=== PATIENT | female | born 1950 | race Caucasian/White ===

== ENCOUNTER → 2016-09-21 | Outpatient (CLI) | payer MEDICARE, OTHER | LOC: RAD 09-14 08:30 | DX: R13.10 Dysphagia, unspecified (principal) | CPT/HCPCS: 74230; 92611-GN ==

== ENCOUNTER 2020-08-06 18:11 | Emergency (ER) | payer MEDICARE, OTHER ==
[~2020-08-06 18:11] MED LIST: BUMETANIDE1 MG PO; KEFLEX500 MG PO; LASIX40 MG PO; LEVEMIR FL100 UNIT/1 SQ; LOPRESSOR 25 MG25 MG PO; NEURONTIN800 MG PO; NORCO 5-325 TA1 EACH PO; NOVOLOG MI100 UNIT/1 SC; PRINIVIL10 MG PO; XARELTO20 MG PO; ZESTRIL/PRINIVI10 MG PO; ZITHROMAX250 MG PO
[2020-08-06 19:19] LABS: HEMOGLOBIN 13.5 gm/dl (12.3-15.3); RED BLOOD COUNT 4.37 M/UL (4.00-5.10)
[2020-08-06 20:19] LABS: BUN/CREATININE RATIO 20 (0-10)
[2020-08-06] MEDS ORDERED: PREDNISONE 20 M20 MG GT (21:14)
[2020-08-06] MEDS ORDERED: DOXYCYCLINE HY100 M2 PO (21:15)
[2021-01-25] MEDS ORDERED: VITAMIN D31250 MCG PO (18:04)
[2021-01-29] MEDS ORDERED: BUSPIRONE HCL7.5 MG PO (01:17)
== END 2020-08-06 22:54 | disposition home or self-care (01) ==
LOC: ER1 18:11
PROVIDERS: Family Medicine
DX: J44.1 Chronic obstructive pulmonary disease with (acute) exacerbation (principal); Z87.891 Personal history of nicotine dependence; Z20.822 Contact with and (suspected) exposure to COVID-19
CPT/HCPCS: 71045; 80053; 82550; 82553; 83874; 83880; 84484; 85025; 93005; 96374; 99285; J2930; U0003

== ENCOUNTER → 2020-11-10 | Outpatient (CLI) | payer MEDICARE, OTHER ==
[~2020-11-10] MED LIST changes: +ATORVASTATIN CA40 MG PO; +AUGMENTIN 875-1 EACH PO; +BUSPIRONE HCL7.5 MG PO; +DOXYCYCLINE HY100 M2 PO; +GABAPENTIN400 MG PO; +HYDRALAZINE HCL25 MG PO; +HYDROCODON-ACE1 EAC4 PO; +PREDNISONE 20 M20 MG GT; +SYMBICORT 80-10.2 GM INH; +VENTOLIN HFA 66.7 GM INH; +VIBRAMYCIN100 MG PO; +VITAMIN D31250 MCG PO
== END ==
LOC: KOH-I 13:58
DX: R60.0 Localized edema (principal); R09.89 Other specified symptoms and signs involving the circulatory and respiratory systems; R93.6 Abnormal findings on diagnostic imaging of limbs
CPT/HCPCS: 93925; 93970

== ENCOUNTER 2021-01-29 12:23 | Inpatient (IN) | payer MEDICARE, OTHER ==
[~2021-01-29] VITALS: Ht 157.5 cm; Wt 89.8 kg
[~2021-01-29 12:23] MED LIST changes: -ATORVASTATIN CA40 MG PO; -AUGMENTIN 875-1 EACH PO; -GABAPENTIN400 MG PO; -HYDRALAZINE HCL25 MG PO; -HYDROCODON-ACE1 EAC4 PO; -SYMBICORT 80-10.2 GM INH; -VENTOLIN HFA 66.7 GM INH; -VIBRAMYCIN100 MG PO
[2021-01-29 12:59] LABS: HEMOGLOBIN 13.9 gm/dl (12.3-15.3); RED BLOOD COUNT 4.82 M/UL (4.00-5.10); WHITE BLOOD COUNT 14.8 K/UL (4.5-11.0)
[2021-01-29 13:24] LABS: BUN/CREATININE RATIO 20 (0-10)
[2021-01-29] MEDS ORDERED: ATORVASTATIN CA40 MG PO (15:50)
[2021-01-29] MEDS ORDERED: SYMBICORT 80-10.2 GM INH (15:52)
[2021-01-29] MEDS ORDERED: LEVEMIR FL100 UNIT/1 SQ (15:52)
[2021-01-29] MEDS ORDERED: HYDRALAZINE HCL25 MG PO (15:53)
[2021-01-29] MEDS ORDERED: VENTOLIN HFA 66.7 GM INH (18:05)
[2021-01-29] MEDS ORDERED: HYDROCODON-ACE1 EAC4 PO (23:15)
[2021-01-30 08:46] LABS: HEMOGLOBIN 10.5 gm/dl (12.3-15.3); RED BLOOD COUNT 3.7 M/UL (4.00-5.10); WHITE BLOOD COUNT 8.9 K/UL (4.5-11.0)
--- NOTE | 2021-01-31 15:16 | NUR ---
TOOK OVER FOR BAN HUFFMAN AT 1400. PT RESTING IN HER BED CURRENTLY. NO NEW COMPLAINTS. ASSESSMENT OF THE PT IS CONSISTENT WITH THE AM ASSESSMENT PERFORMED BY BAN. WILL CONTINUE TO MONITOR.
[2021-01-31] MEDS ORDERED: AUGMENTIN 875-1 EACH PO (16:08)
[2021-01-31] MEDS ORDERED: VIBRAMYCIN100 MG PO (16:08)
[2021-01-31] MEDS ORDERED: GABAPENTIN400 MG PO (16:20)
== END 2021-01-31 22:30 | disposition home health service (06) | DRG 177 ==
LOC: ER1 12:23 → MED SURG 4 14:10 → CDU 14:10 → MED SURG 4 20:52
PROVIDERS: Emergency Medicine; Physician Assistant Medical; ADMIT Internal Medicine
DX: J69.0 Pneumonitis due to inhalation of food and vomit (principal); G92 Toxic encephalopathy; J44.0 Chronic obstructive pulmonary disease with (acute) lower respiratory infection; J44.1 Chronic obstructive pulmonary disease with (acute) exacerbation; J96.11 Chronic respiratory failure with hypoxia; N17.9 Acute kidney failure, unspecified; T42.6X5A Adverse effect of other antiepileptic and sedative-hypnotic drugs, initial encounter; T40.2X5A Adverse effect of other opioids, initial encounter; R40.0 Somnolence; G89.29 Other chronic pain; G62.9 Polyneuropathy, unspecified; F41.9 Anxiety disorder, unspecified; F32.9 Major depressive disorder, single episode, unspecified; I48.0 Paroxysmal atrial fibrillation; E11.9 Type 2 diabetes mellitus without complications; I87.8 Other specified disorders of veins; Z20.822 Contact with and (suspected) exposure to COVID-19; I50.9 Heart failure, unspecified; I11.0 Hypertensive heart disease with heart failure; Z87.440 Personal history of urinary (tract) infections; Z83.3 Family history of diabetes mellitus; Y92.89 Other specified places as the place of occurrence of the external cause; Z79.01 Long term (current) use of anticoagulants; Z79.4 Long term (current) use of insulin
CPT/HCPCS: 36415; 36600; 71045; 80048; 80053; 81001; 82550; 82553; 82803; 82962; 83605; 83690; 83735; 83874; 83880; 84484; 85025; 85027; 85610; 85730; 87040; 93005; 94640; 94664; 94760; 99285; J0696; J1335; J7030; U0002

== ENCOUNTER 2021-09-20 15:23 | Emergency (ER) | payer MEDICARE, OTHER ==
[~2021-09-20] VITALS: Ht 177.8 cm; Wt 90.7 kg
[~2021-09-20 15:23] MED LIST changes: +ATORVASTATIN CA40 MG PO; +AUGMENTIN 875-1 EACH PO; +GABAPENTIN400 MG PO; +HYDRALAZINE HCL25 MG PO; +HYDROCODON-ACE1 EAC4 PO; +SYMBICORT 80-10.2 GM INH; +VENTOLIN HFA 66.7 GM INH; +VIBRAMYCIN100 MG PO
[2021-09-20 16:10] LABS: HEMOGLOBIN 13.3 gm/dl (12.3-15.3); RED BLOOD COUNT 4.56 M/UL (4.00-5.10); WHITE BLOOD COUNT 7.7 K/UL (4.5-11.0)
[2021-09-20] MEDS ORDERED: DOXYCYCLINE HY100 MG PO (20:38)
[2021-09-20] MEDS ORDERED: PREDNISONE20 MG PO (20:38)
== END 2021-09-21 00:07 | disposition home or self-care (01) ==
LOC: ER1 15:23
PROVIDERS: Family Medicine
DX: U07.1 COVID-19 (principal); E11.22 Type 2 diabetes mellitus with diabetic chronic kidney disease; I12.9 Hypertensive chronic kidney disease with stage 1 through stage 4 chronic kidney disease, or unspecified chronic kidney disease; N18.9 Chronic kidney disease, unspecified; J44.9 Chronic obstructive pulmonary disease, unspecified; Z79.01 Long term (current) use of anticoagulants; I48.0 Paroxysmal atrial fibrillation; E66.01 Morbid (severe) obesity due to excess calories; Z79.4 Long term (current) use of insulin; Z99.81 Dependence on supplemental oxygen
CPT/HCPCS: 71045; 80053; 82550; 82553; 82803; 83605; 84484; 85025; 86140; 87040; 93005; 96374; 99284; J2930; M0247; U0002

== ENCOUNTER → 2021-11-12 | Outpatient (CLI) | payer MEDICARE, OTHER ==
[~2021-11-12] MED LIST changes: +DOXYCYCLINE HY100 MG PO; +PREDNISONE20 MG PO
== END ==
LOC: RAD 16:15
DX: J20.9 Acute bronchitis, unspecified (principal); J94.8 Other specified pleural conditions
CPT/HCPCS: 71046

== ENCOUNTER → 2022-04-07 | Outpatient (CLI) | payer MEDICARE, OTHER ==
[2022-04-07 14:22] LABS: HEMOGLOBIN 13.1 gm/dl (12.3-15.3); RED BLOOD COUNT 4.57 M/UL (4.00-5.10); WHITE BLOOD COUNT 7.4 K/UL (4.5-11.0)
[2022-04-08 09:14] LABS: CREATININE, URINE 44.1 mg/dL (Not Estab.)
== END ==
LOC: LAB 13:49
PROVIDERS: Nurse Practitioner Family
DX: M25.562 Pain in left knee (principal); E11.9 Type 2 diabetes mellitus without complications; E78.5 Hyperlipidemia, unspecified; E55.9 Vitamin D deficiency, unspecified
CPT/HCPCS: 36415; 73562; 80053; 80061; 82043; 82570; 84439; 84443; 85025